=== PATIENT | female | born 1980 | race Caucasian/White ===

== ENCOUNTER 2018-01-03 12:10 | Emergency (ER) | payer OTHER ==
--- NOTE | 2018-01-03 13:04 | EDM.PDOC ---
ED HPI GENERAL MEDICAL PROBLEM - General Chief Complaint: Lower Extremity Injury/Pain Stated Complaint: POSSIBLE BROKEN FOOT Time Seen by Provider: 01/03/18 12:21 Source of Information: Reports: Patient, Family, RN, RN Notes Reviewed History Limitations: Reports: No Limitations - History of Present Illness INITIAL COMMENTS - FREE TEXT/NARRATIVE: Patient presents to the emergency room with complaints of left ankle injury that occurred today after tripping down the stairs. She reports extension of her left foot causing the injury. She denies inversion or eversion injury. Complains of pain to the left lateral side of foot. Denies other injuries. Denies loss of consciousness. Patient only tripped on the last step going down. Onset: Today Onset Date: 01/03/18 Onset Time: 11:30 Duration: Waxing/Waning Location: Reports: Lower Extremity, Left (Left lateral ankle) Quality: Reports: Throbbing Severity: Moderate Improves with: Reports: Immobilization Worsens with: Reports: Movement Context: Reports: Trauma Associated Symptoms: Reports: No Other Symptoms Left Ankle Pain Score (Numeric/FACES): 7 Review of Systems - Review of Systems Review Of Systems: See Below Constitutional: Denies: Chills, Fever Respiratory: Denies: Shortness of Breath, Cough Cardiovascular: Denies: Chest Pain, Palpitations Musculoskeletal: Reports: Foot Pain Skin: Reports: No Symptoms Neurological: Reports: No Symptoms. Denies: Dizziness, Headache, Numbness, Paresthesia, Tingling ED EXAM, GENERAL - Physical Exam Exam: See Below Exam Limited By: No Limitations General Appearance: Alert, No Apparent Distress Respiratory/Chest: No Respiratory Distress, Lungs Clear, Normal Breath Sounds Cardiovascular: Normal Peripheral Pulses, Regular Rate, Rhythm Peripheral Pulses: 2+: Radial (L), Radial (R) Extremities: Normal Capillary Refill, Joint Swelling (left lateral ankle), Limited Range of Motion (due to pain), Other (tenderness upon palpation of left lateral ankle; mild swelling; no bruising; no obvious bone deformity) Neurological: Alert, Oriented Course - Vital Signs Last Recorded V/S: Last Vital Signs Temp 36.9 C 01/03/18 12:25 Pulse 76 01/03/18 12:25 Resp 16 01/03/18 12:25 BP 130/69 01/03/18 12:25 Pulse Ox - Orders/Labs/Meds Orders: Active Orders 24 hr Category Date Time Status Ankle Min 3V Lt [CR] Stat Exams 01/03/18 12:56 Taken - Radiology Interpretation Free Text/Narrative:: Left Ankle 3V: Negative exam - see scanned report in EMR Departure - Departure Time of Disposition: 14:00 Disposition: Home, Self-Care 01 Condition: Good Clinical Impression: Left ankle sprain Qualifiers: Encounter type: initial encounter Involved ligament of ankle: unspecified ligament Qualified Code(s): S93.402A - Sprain of unspecified ligament of left ankle, initial encounter Fall Qualifiers: Encounter type: initial encounter Qualified Code(s): W19.XXXA - Unspecified fall, initial encounter Left ankle pain Qualifiers: Chronicity: acute Qualified Code(s): M25.572 - Pain in left ankle and joints of left foot - Discharge Information Instructions: Ankle Sprain, [id number] Forms: ED Department Discharge Additional Instructions: 1. Stay well hydrated and rest 2. Rest, elevate, and ice the left ankle several times a day 3. May alternate Tylenol/Advil as needed 4. Wear ALICE wrap at all times to help with swelling 5. See your Primary as symptoms warrant 6. Call with any questions/concerns - Problem List Review Problem List Initiated/Reviewed/Updated: Yes - My Orders Last 24 Hours: My Active Orders 01/03/18 12:56 Ankle Min 3V Lt [CR] Stat - Assessment/Plan Last 24 Hours: My Active Orders 01/03/18 12:56 Ankle Min 3V Lt [CR] Stat
== END 2018-01-03 14:14 | disposition home or self-care (01) ==
LOC: VM.ED 12:10
DX: S93.402A Sprain of unspecified ligament of left ankle, initial encounter (principal); W10.8XXA Fall (on) (from) other stairs and steps, initial encounter
CPT/HCPCS: 73610-LT; 99283